=== PATIENT | male | born 1965 | race Caucasian/White ===

== ENCOUNTER 2019-12-03 06:42 | Outpatient (CLI) | payer OTHER, MEDICARE, SELFPAY ==
--- NOTE | 2019-12-03 12:50 | NEURO_ITS ---
TEST: SLEEP DEPRIVED ELECTROENCEPHALOGRAM DIAGNOSIS: FOCAL SEIZURES PATIENT NUMBER: [id number] EEG NUMBER: [id number] RECORDING DATE: 12/03/19 CONDITION OF RECORDING: Awake, drowsy and sleep EEG DESCRIPTION: Basic resting occipital frequency consists of small amount of fairly well organized low voltage 9-11hz alpha during brief periods of wakefulness. During drowsiness low voltage beta activity is seen diffusely mixed with waxing and waning posterior alpha rhythms. Bilateral symmetrical sleep activity is seen during sleep. Photic stimulation produced normal drive. Hyperventilation produced normal and symmetrical build-up. Nonparoxysmal. Nonfocal. Nonlateralizing. IMPRESSION: Normal record during wakefulness, drowsiness and sleep MTDD
== END 2019-12-03 06:43 | disposition home or self-care (01) ==
DX: G40.89 Other seizures (principal)
CPT/HCPCS: 95819

== ENCOUNTER → 2022-09-08 09:12 | Outpatient (CLI) | payer OTHER, SELFPAY ==
--- NOTE | ~2022-09-08 | CT_ITS ---
EXAMINATION: CT sinus wo con DATE: 09/08/2022 09:27 INDICATION: Chronic maxillary sinusitis TECHNIQUE: Computed tomography (CT) of the paranasal sinuses was performed without intravenous contra st. The dose-length product (DLP) was 278.24 mGy-cm. Iterative reconstruction was used. COMPARISON: None FINDINGS: There is normal development and pneumatization of the paranasal sinuses. The frontal, sphen oid, ethmoid, and maxillary sinuses are clear. The bilateral ostiomeatal complexes are patent. Visual ized soft tissues are unremarkable. There are 3 mm of leftward deviation of the nasal septum. IMPRESSION: 1. Unremarkable sinuses. Reviewed, dictated and finalized at location B. NG OUT MACHINE OPERATOR IMPRESSION: 1. Unremarkable sinuses.
== END ==
PROVIDERS: Visit Provider Otolaryngology
DX: J32.9 Chronic sinusitis, unspecified (principal)
CPT/HCPCS: 70486